=== PATIENT | female | born 2000 | race Caucasian/White ===

== ENCOUNTER 2018-07-14 21:46 | Emergency (ER) | payer MEDICAID, SELFPAY ==
[2018-07-14 21:55] VITALS: BP 112/73; PULSE 120; RESP 18; TEMP 37.5; O2SAT 97
--- NOTE | 2018-07-14 22:06 | W.ED.GENAD ---
Discharge Plan Disposition Patient Disposition: HOME Condition: Good Discharge Details Chief Complaint: Sorethroat Clinical Impression: Mononucleosis Primary Care Provider: Markie Huang ED Provider: Bogdan Estrada Home Meds and New Rx's Prescriptions: No Action No Known Home Meds RF: 0 Discharge Instructions Instructions: Mononucleosis (ED) Additional Instructions: Rest and stay hydrated. Motrin and/or Tylenol for fever and pain. Smoothies, popsicles, protein shakes until you are able to eat better. Salt water gargles and Cepacol lozenges should help with throat pain. No contact sports. Follow-up with primary care late next week for reevaluation. Return to ED for problems. Stand Alone Forms: Work Release Referrals: Markie Huang [Primary Care Provider] - Medical Decision Making Patient is here because of sore throat and sweats. There is no exudate. She has both anterior and posterior lymphadenopathy. Rapid strep is negative. IV is established and laboratory studies including a Monospot are sent. She is given fluids. test is negative. She received Toradol for discomfort. Monospot is positive. CBC with atypical lymphocytes present. Patient with diagnosis of mononucleosis. Patient instructed to rest and stay hydrated. Use Motrin or Tylenol for pain. Avoid contact sports and follow-up with primary care allergy end of the week to see how she is doing. Return to ED for any worsening symptoms. Lab Data Lab results reviewed: Yes I reviewed the patient's lab results. HPI General Mode of arrival: ambulatory. Date/Time Provider Initiated Documentation: 07/14/18 22:05. Limitations to Documentation: no limitations. Information obtained by: patient. HPI Narrative: Patient presents to the ED for evaluation of sore throat. Patient reports being ill for about 3 days. She has general malaise, sweats, fatigue, sore throat. She has noticed lymph nodes in her neck. She denies earache, congestion, cough. She has mild headaches on and off. She has difficulty swallowing because of pain. She has no difficulty breathing. She continues to make urine not sure if she is drinking enough to stay hydrated. She denies rash, myalgias. She has had some mild arthralgias. Related Data Home Medications Medication Instructions Recorded Confirmed Unknown [No Known Home Meds] 07/14/18 07/14/18 Allergies Allergy/AdvReac Type Severity Reaction Status Date / Time No Known Allergies Allergy Unverified 07/14/18 22:05 General Stated Complaint: Sorethroat NICHOLAS: 4 Review of Systems Constitutional Denies chills, Reports excessive sweating, Reports fatigue, Denies fever(s), Reports headache(s), Denies lethargy, Reports malaise and Denies weakness Eyes Denies eye discharge and Denies eye pain ENT Denies otalgia, Reports headache(s), Denies nasal congestion, Denies nasal discharge, Denies neck pain, Denies sinus pain and Reports sore throat Cardiovascular Denies chest pain, Denies syncope, Denies rapid heart rate, Denies leg edema and Denies dyspnea Respiratory Denies cough and Denies dyspnea Gastrointestinal Denies abdominal pain, Denies diarrhea, Denies nausea and Denies vomiting Genitourinary Denies hematuria and Denies dysuria Musculoskeletal Denies back pain, Denies myalgias, Reports arthralgias, Denies neck pain and Denies numbness Integumentary/Breasts Denies rash Neurologic Denies syncope, Reports headache(s), Denies focal weakness, Denies numbness and Denies weakness Endocrine Reports excessive sweating and Reports fatigue [facility] Social History Smoking/Tobacco Use Status: Current every day Exam Const General: cooperative, comfortable and no acute distress Orientation: alert and oriented x3 HENMT Head: normocephalic and atraumatic Ears: external ears normal and TM's normal bilaterally General nose exam: external nose normal and no nasal discharge Mouth: oral mucosae normal Throat: tonsils normal, uvula midline, posterior oropharynx abnormal erythema; no cobblstoning, no edema and no exudates, uvula not displaced and no uvular edema Eyes Conjunctivae: conjunctivae normal Sclera: sclerae normal Pupils: PERRL EOM: EOM intact bilaterally Neck Neck: full ROM, trachea midline and lymphadenopathy Resp Effort & Inspection: normal respiratory effort Auscultation: clear to auscultation bilaterally Cardio Rate: tachycardic Rhythm: regular rhythm Heart Sounds: S1 normal and S2 normal GI Inspection: normal to inspection Palpation: soft, no hepatosplenomegaly, no guarding and nontender Skin General skin exam: no rashes or lesions noted Neuro General: alert, oriented x3, no focal motor deficits and CN's II-XI intact bilaterally Sensory Exam: no sensory deficits noted Extrem General: normal to inspection and full ROM Course Vital Signs Temperature 99.5 F 07/14/18 21:55 Pulse 120 H 07/14/18 21:55 Respiratory Rate 18 07/14/18 21:55 Blood Pressure 112/73 07/14/18 21:55 Pulse Oximetry 97 07/14/18 21:55 Temperature 99.5 F 07/14/18 21:55 Temperature Source Tympanic 07/14/18 21:55 Pulse 120 H 07/14/18 21:55 Respiratory Rate 18 07/14/18 21:55 Respiratory Effort 07/14/18 21:55 Blood Pressure 112/73 07/14/18 21:55 Pulse Oximetry 97 07/14/18 21:55 Oxygen Delivery Method Room Air 07/14/18 21:55 Oxygen Flow Rate 0 07/14/18 21:55 Pain Level 6 07/14/18 21:55 Comment 07/14/18 21:55
[2018-07-14 22:37] LABS: Abs Immature Grans 0.04 k/cumm (0.0-0.09); HCT 43.3 % (36.0-46.0); HGB 14.7 g/dL (12.0-15.5); Mean Corp. HGB Concentration 33.9 g/dL (32.0-36.0); Mean Corpuscular Hemoglobin 30.4 pg (27.0-33.0); Mean Corpuscular Volume 89.6 fL (80-95); Mean Platelet Volume 10.1 fL (8.0-11.0); Platelet Count 196 x1000/uL (130-400); RBC 4.83 m/cumm (4.00-5.20); RBC Distribution Width 13.3 % (11.7-14.6); White Blood Cell Count 14.34 k/cumm (4.4-10.8)
[2018-07-14] MEDS: Lactated Ringers 1,000 ML 1000 ML IV (22:43)
[2018-07-14] MEDS: Normal Saline Flush 10 ML SYR IVP (22:44)
[2018-07-14 22:46] LABS: Mono Screening POSITIVE (Negative)
[2018-07-14 22:51] LABS: Anion Gap 9.9 mmol/L (3-11); BUN 12 mg/dL (7-18); CO2 28.1 mmol/L (21.0-32.0); CREATININE 0.78 mg/dL (0.55-1.02); Calcium 9.3 mg/dL (8.5-10.1); Chloride 100 mmol/L (98-107); Glucose 93 mg/dL (70-100); Potassium 3.3 mmol/L (3.5-5.1); Sodium 138 mmol/L (136-145)
[2018-07-14 23:03] LABS: Atypical Lymphocytes % 10
[2018-07-14 23:06] LABS: Absolute Neutrophil Count 5.74 k/cumm (1.2-6.7)
[2018-07-14 23:07] LABS: RBC Morphology Normal
[2018-07-15 00:01] VITALS: BP 115/70; PULSE 95; RESP 16; TEMP 37; O2SAT 98
[2018-07-15] MEDS: Normal Saline Flush 10 ML SYR IVP (00:03)
[2018-07-15] MEDS: Ketorolac 15 MG/ML VIAL IVP (00:03)
[2018-07-15 00:59] VITALS: BP 115/70; PULSE 95; RESP 16; TEMP 37; O2SAT 98
== END 2018-07-15 00:57 | disposition home or self-care (01) ==
PROVIDERS: Emergency Provider Emergency Medicine; PCP Family Medicine
DX: B27.90 Infectious mononucleosis, unspecified without complication (principal); F17.210 Nicotine dependence, cigarettes, uncomplicated
CPT/HCPCS: 36415; 80048; 81025; 87880; 96361; 96374; 99284; 85025; 86308; J1885